=== PATIENT | female | born 1955 | race Asian ===

== ENCOUNTER 2025-05-26 08:10 | Day surgery (SDC) | payer MEDICARE, MEDICAID ==
[2025-05-20 15:38] LABS: MEAN PLATELET VOLUME 6.7 FL (7.4-10.4); PRE OP HEMATOCRIT 30.7 % (35.0-45.0); PRE OP PLATELET COUNT 282 X10'3 (140-440); PRE OP WHITE BLOOD COUNT 7.6 10'3 (4.8-10.8); RED CELL DISTRIBUTION WIDTH 15.8 % (11.5-14.5)
[2025-05-20 15:45] LABS: PRE OP HEMOGLOBIN 10.2 g/dL (12.0-16.0)
[2025-05-20 15:52] LABS: CREATININE 0.63 MG/DL (0.40-0.90); PRE OP ALT 32 U/L (30-65); PRE OP ANION GAP 5 (8-16); PRE OP AST 25 U/L (10-37); PRE OP BILIRUB, TOTAL 0.6 MG/DL (0.0-1.0); PRE OP GLUCOSE 131 MG/DL (70-104); PRE OP SODIUM 140 MMOL/L (135-145); TOTAL CARBON DIOXIDE 29.1 MMOL/L (24-32); eGFR > 90 ML/MIN
[2025-05-20 15:54] LABS: PRE OP POTASSIUM 2.8 MMOL/L (3.4-5.1)
[~2025-05-26] VITALS: Ht 154.9 cm; Wt 68.3 kg
[2025-05-26] VITALS (15 sets, daily range): BP systolic 114–145; BP diastolic 67–89; PULSE 69–90; RESP 12–19; TEMP 98.8; O2SAT 93–100
[2025-05-26] MEDS: ceFAZolin 2gm/dext,iso 50mL 50 ML IV ONE (05:30)
[~2025-05-26 08:10] MED LIST: DOCUMENT DATE & TIME OF BETA-BLOCKER PO ONE; LEVO100T9 PO; ONDA-243 SL; VITAMIN D PO
[2025-05-26] MEDS ORDERED: enalaprilat 1.25mg/ml 2ml vial IV PRN (09:00)
[2025-05-26] MEDS ORDERED: ringers solution, lacted 1,000 ML IV SCH (09:00)
[2025-05-26] MEDS ORDERED: ondansetron/PF 4mg/2ml inj IV PRN (09:00)
[2025-05-26] MEDS ORDERED: labetalol 20mg/4ml (5mg/ml) syringe IV PRN (09:00)
[2025-05-26] MEDS ORDERED: meperidine/PF 25mg/ml syringe IV PRN ×3 (09:00)
[2025-05-26] MEDS: ringers solution, lacted 1,000 ML IV SCH (09:06)
[2025-05-26 09:39] LABS: ISTAT ANION GAP 13 (8-12); ISTAT BUN 9 mg/dL (7-18); ISTAT CL 104 mmol/L (99-107); ISTAT CREATININE 0.6 mg/dL (0.6-1.1); ISTAT GLUCOSE 104 mg/dL (70-104); ISTAT HGB 11.2 g/dl (12.0-16.0); ISTAT Hct 33 %PCV (35-45); ISTAT IONIZED CALCIUM 1.18 mmol/L (1.03-1.32); ISTAT K 3.1 mmol/L (3.5-5.1); ISTAT NA 141 mmol/L (135-145); ISTAT TOTAL CO2 24 mmol/L (24-32); ISTAT eGFR > 90 ML/MIN; POC BUN/CREATININE RATIO 15.0 (6.6-38.0)
[2025-05-26] MEDS ORDERED: BUPIVAcaine 2.5mg/ml inj 50ml vial (contains preservative) ONE (10:29)
[2025-05-26] MEDS ORDERED: methylene blue (5mg/ml) 50mg/10ml ampul IV ONE (10:29)
[2025-05-26] MEDS ORDERED: LIDOcaine 1% (10mg/ml)w/preservative inj. 20ml MDV ONE (10:29)
[2025-05-26] MEDS ORDERED: fentaNYL/PF 50MCG/1 ML 2ML syringe ONE (12:14)
[2025-05-26] MEDS ORDERED: midazolam 1 mg/ML 2ml injection ONE (12:14)
[2025-05-26] MEDS ORDERED: propofol inj 20 ML IV ONE ×2 (12:18→12:27)
[2025-05-26] MEDS ORDERED: ondansetron/PF 4mg/2ml inj ONE (12:27)
[2025-05-26] MEDS ORDERED: acetaminophen 1,000mg/100ml IV 100 ML IV ONE (12:28)
[2025-05-26] MEDS: methylene blue (5mg/ml) 50mg/10ml ampul IV ONE (12:32)
[2025-05-26] MEDS: LIDOcaine 1% 30ml preserv. free vial IJ ONE (12:55)
--- NOTE | 2025-05-26 13:44 | RADIOLOGY REPORT ---
Specimen radiograph INDICATION: RT.BREAST LUMPECTOMY TECHNIQUE: Specimen radiographs were obtained of the right breast FINDINGS/IMPRESSION: Postop radiograph demonstrates the CHRISSIE BLOOD BANK SPECIALIST along with the specified target contained within the sp ecimen.
[2025-05-26] MEDS: BUPIVAcaine/PF 2.5 mg/ml (0.25%) 30ml vial IJ ONE (14:02)
[2025-05-26] MEDS: morphine 4 MG/ML inj SYRINge IV PRN (14:24)
--- NOTE | 2025-05-26 14:27 | OPERATIVE REPORT ---
Operative Report Providers to CC CC: ERMIAS PINZON DO ~ Date of Procedure: May 26, 2025 Pre-Operative Diagnosis: Right breast cancer completed neoadjuvant chemotherapy Post-Operative Diagnosis SAME as PRE-Op Procedure Performed Right breast wire (CHRISSIE reversing mill roller) localized lumpectomy, right axillary sentinel lymph node biopsy, oncoplastic closure, reading of specimen radiograph Surgeon: Dr. Ermias Pinzon Independent Driver engineer technician Anesthesiologist: Collins Keith Type of Anesthesia: General Findings: Three right axillary sentinel lymph nodes, marker and tracker detected on specimen radiograph Complications None Prosthetics\Implants used: None Estimated Blood Loss: Less than 10 mL Specimen Removed: Right breast wire localized lumpectomy oriented short stitch superior long suture lateral double suture deep, right axillary sentinel lymph nodes one hot and blue the other two hot only Description of Procedure: Phone is a 70-year-old female who was diagnosed with right breast invasive ductal carcinoma. She completed neoadjuvant chemotherapy and was sent to me for surgical management. Based on her visit we discussed the options of breast conservation versus mastectomy. It appeared that she got a good response from the neoadjuvant chemotherapy. She agreed to breast conservation. All the risks and benefits and alternatives to surgery were discussed with the patient and her family. The patient is not [place]ic speaking so she has had translators during her visits. She was seen in the preoperative holding area by myself and the anesthe siologist. The right breast was marked with my initials. An IV was placed on left upper extremity, SCDs to the lower extremities, and IV antibiotics were administered prior to the cut of surgery. She was taken into the operative suite and placed on table in supine position with the arms extended. General anesthesia was administered with an LMA. The patient had Lymphoseek injection yesterday and I used the probe to scan her right breast and axilla for the signals. Hospice was detected in the right axilla. I used the CHRISSIE probe to detect the CHRISSIE tracker in the upper inner quadrant and I marked the skin. The patient was prepped and draped in a sterile fashion and a time-out was performed and agreed upon. I started the surgery with the lumpectomy. I made a proposed Lenora areolar incision between 12 and 2:00 at the superior edge of the areola. 1% lidocaine was injected at the site. The incision was made with a 15 blade. I further deepened the dissection through the deep layer of the dermis with the cutting on the cautery. I used a Lee retractors at the edges of the incision to further my dissection beneath the skin flap. The CHRISSIE probe was used to find the signal and I guided my dissection around the site of the signal circumferentially and then deep to the signal. I maintained a distance of approximately 9-15 mm. Once the specimen was completely excised. I removed from the cavity and oriented with short stitch superior, long suture lateral, double suture deep. I scanned the cavity for any bleeding hemostasis was achieved with Bovie electrocautery. The specimen was placed in the specimen radiograph board and placed in the specimen radiograph machine. The two markers were detected on two views. Both were in good position. The specimen was placed in formalin. The cavity measured 8 cm x 10 cm x 4 cm. The acquired defect was noted. I released breast tissue and the superior aspect of the cavity and inferiorly with the cautery in preparation for reapproximation of the acquired defect. I turned my attention to the right axillary sentinel lymph node biopsy. I made an incision after injecting lidocaine in the right axilla. I further dissected through the deep dermal layer and into the subcutaneous tissue with the cautery. I dissected through the axillary fascia and we used the probe to detect a hot spot. I noticed a blue lymphatic vessel at the same site as the hot signal. I used a tonsil clamp to grasp the base of the lymph node and excised it with the LigaSure. Specimen was removed from the cavity. It was hot and blue as the sentinel lymph node #1 and sent off the field in formalin. Additionally I detected two additional lymph nodes that were hot only and they were excised in the same fashion. The cavity was irrigated and hemostasis was achieved with Bovie electrocautery. I used 10 mL of Vistaseal and sprayed in both cavities to assist with postoperative hemostasis. The right axillary cavity was approximated with 3-0 Vicryl suture. The skin was closed with 3-0 Vicryl suture and a 4-0 Monocryl running subcuticular stitch. I turned my attention to closure of the breast cavity. The cavity was approximated from the superior pole and the inferior pole with 3- 0 nasim Vicryl suture. The skin was closed in two layers with 3-0 Vicryl suture and a 4-0 Monocryl running subcuticular stitch. The areas were cleaned and Dermabond glue was placed over both incisions and clean dressings. The pressure dressing was placed in the axilla and a breast binder was placed on the patient. All needle sponge counts were correct. She tolerated procedure well was taken to recovery in stable condition. Counts repoted as correct: Yes ERMIAS PINZON DO May 26, 2025 14:27
[2025-05-26] MEDS: HYDROmorphone/PF 0.2 MG/ML SYRINGE IV PRN (14:55)
--- NOTE | 2025-06-01 07:06 | PATHOLOGY REPORT ---
[facility] [address] [place] [address] SURGICAL PATHOLOGY REPORT CaseNumber: [id number] Surgeon:Tarah Lee P.A.-C CLINICAL INFORMATION CLINICAL INFORMATION: The patient did have neoadjuvant chemotherapy. DIAGNOSIS DIAGNOSIS: A.BREAST, RIGHT, 1:30, 7 CM FROM NIPPLE; LUMPECTOMY - INVASIVE DUCTAL CARCINOMA, CAROLIN GRADE 2 (7/9), 1.6 X 0.8 CM IN SIZE. - POST NEOADJUVANT THERAPY. - CLOSEST MARGIN, ANTERIOR, CLEAR BY 0.4 CM. - INTERMEDIATE GRADE DUCTAL CARCINOMA IN SITU, CRIBRIFORM TYPE, 1.8 X 1.0 CM IN SIZE. - CLOSEST MARGIN, ANTERIOR, CLEAR BY 0.4 CM. DIAGNOSIS: B.LYMPH NODE, RIGHT AXILLARY, SENTINEL #1; EXCISION - BENIGN LYMPH NODE, ONE (0/1). DIAGNOSIS: C.LYMPH NODE, RIGHT AXILLARY #2; EXCISION - BENIGN LYMPH NODE, ONE (0/1). DIAGNOSIS: D.LYMPH NODE, RIGHT AXILLARY, SENTINEL #3; EXCISION - BENIGN LYMPH NODE, ONE (0/1). MICROSCOPIC DESCRIPTION A. BREAST, RIGHT, 1:30, 7 CM FROM NIPPLE MICROSCOPIC DESCRIPTION: Eight slides are reviewed of the right breast, 1:30, 7 cm from nipple lumpec daquan specimen. Present is residual invasive ductal carcinoma, post Neoadjuvant therapy, which measure s 1.6 x 0.8 cm in size and is clear of the closest margin, anterior by 0.4 cm. The residual scar region, adjacent to the biopsy site, is formed of dense fibrous tissue within whic h are scattered residual ductal epithelium exhibiting marked chemotherapy/radiation change. These epi thelial cells are quite large containing vacuolated cytoplasm and occasional intracytoplasmic lumen. The nuclei are oval to irregular. The nuclear margins are irregularly thickened. The chromatin is sli ghtly coarse. The vast majority of the malignant cells contain prominent very large basophilic nuclei . Occasional true ducts are formed (3). The nuclei vary markedly from one to another (3). The mitotic figures are less than 7/10 HPF's (1). The majority of the wound site is formed of acute and chronica lly inflamed, mostly mature granulation tissue. There is no brisk lymphohistiocytic tumor host respon se. There is no large vessel invasion. There is no small vessel invasion identified. In the immediate area of the invasive neoplasm, and in one additional region (A7), extending outward for an areas of 1.8 x 1.0 cm, is intermediate grade ductal carcinoma in situ, cribriform type. Present are polygonal malignant cells which are medium to slightly large in size. They have amphophi lic cytoplasm. The dysplastic cells stand apart from one another. In some ducts, they form "rigid" gl ands arranged in a cribriform pattern. Distant from the wound site, there are no features of ductal c arcinoma in situ. The in situ malignancy is clear of the closest margin, anterior, by 0.4 cm. Sections of the superior, inferior, medial, lateral, and posterior margin are free of neoplasm, both in situ and invasive. B. LYMPH NODE, RIGHT AXILLARY, SENTINEL #1 MICROSCOPIC DESCRIPTION: Prepared from the right axillary sentinel lymph node #1 were two H&E and one immunoperoxidase which are negative for the presence of malignancy (0/1). C. LYMPH NODE, RIGHT AXILLARY #2 MICROSCOPIC DESCRIPTION: Prepared from the right axillary sentinel lymph node #2 were two H&E and one immunoperoxidase which are negative for the presence of malignancy (0/1). D. LYMPH NODE, RIGHT AXILLARY, SENTINEL #3 MICROSCOPIC DESCRIPTION: Prepared from the right axillary sentinel lymph node #3 were five H&E and tw o immunoperoxidase which are negative for the presence of malignancy (0/1). (st) GROSS DESCRIPTION A. BREAST, RIGHT, 1:30, 7 CM FROM NIPPLE GROSS DESCRIPTION: Received in a container of formalin labeled with the patient's name, number, and " right breast lumpectomy" is a 62 g oriented excision of fibrofatty breast tissue which measures 4.5 x 8 x 3 cm. There are sutures from marking the superior, lateral, and posterior aspects of the excisio n. The superior margin is marked blue, the inferior margin is marked green, the medial margin is aida ed orange, the lateral margin is marked yellow, the anterior margin is marked red, and the posterior margin is marked black. Sectioning reveals a 1.5 x 1 x 1 cm ill-defined firm area which contains fore ign material (metallic clip). The firm area is present 0.6 cm from the anterior resection margin. Sections are submitted as follows:A1) Superior margin A2) Inferior marginA3) Medial marginA4) Lateral marginA5-A7) Anterior margin wi th firm area A8) Posterior margin The time at which the specimen was removed was 1300. The time at which the specimen was placed in fo rmalin was 1308. (meb) B. LYMPH NODE, RIGHT AXILLARY, SENTINEL #1 GROSS DESCRIPTION: Received in a container of formalin labeled with the patient's name, number, and " right axillary sentinel lymph node #1" is a 1 x 0.8 x 0.6 cm blue stained lymph node candidate. The s pecimen is sectioned and submitted as B1. The time at which the specimen was removed was 1322. The ti me at which the specimen was placed in formalin was 1325. (meb) C. LYMPH NODE, RIGHT AXILLARY #2 GROSS DESCRIPTION: Received in a container of formalin labeled with the patient's name, number, and " right axillary sentinel lymph node #2" is a 3 x 3 x 1 cm irregularly shaped excision of fat. Sectioni ng reveals a ward lymph node candidate. The specimen is sectioned and submitted as C1. The time at [facility] the specimen was removed was 1334. The time at which the specimen was placed in formalin was 1335. (meb) D. LYMPH NODE, RIGHT AXILLARY, SENTINEL #3 GROSS DESCRIPTION: Received in a container of formalin labeled with the patient's name, number, and " right axillary sentinel lymph node #3" is a 1.5 x 1 x 1 cm ward lymph node candidate. The specimen is sectioned and submitted as D1-D2. The time at which the specimen was removed was 1336. The time at [facility] the specimen was placed in formalin was 1337. (meb) SYNOPTIC REPORT SYNOPTIC TEXT: Previous prognostic markers ([id number], Right breast, 1:30, 6-7 cm from nipple) [place]: 0% [place]: 0% Her2: 3+ Ki-67: 20% FISH: Negative/not amplified Breast Invasive Carcinoma - Resection Specimen Procedure: Excision (less than total mastectomy) Specimen Laterality: Right Tumor Tumor Site: Clock position; Distance from nipple (Centimeters) 7 cm 1:30 o'clock Histologic Type: Invasive carcinoma of no special type (ductal) Histologic Grade (Carolin Histologic Score): Glandular (Acinar) / Tubular Differentiation: Score 2 Nuclear Pleomorphism: Score 3 Mitotic Rate: Score cannot be determined Tumor Focality: Single focus of invasive carcinoma Ductal Carcinoma In Situ (DCIS): Present Size (Extent) of DCIS: 18 x 10 Millimeters (mm) Architectural Patterns: Cribriform Nuclear Grade: Grade II (intermediate) Necrosis: Present, focal (small foci or single cell necrosis) Number of Blocks with DCIS: 3 Number of Blocks Examined: 8 Lobular Carcinoma In Situ (LCIS): Not identified Lymphatic and / or Vascular Invasion: Not identified Dermal Lymphatic and / or Vascular Invasion: No skin present Microcalcifications: Not identified Treatment Effect in the Breast: Probable or definite response to presurgical therapy in the invasive carcinoma Treatment Effect in the Lymph Nodes: No lymph node metastases and no fibrous scarring or histiocytic aggregates in the nodes Residual Cancer [place] (RCB) Parameters Greatest Dimension of Primary Tumor Bed Area (Millimeters): 16 mm Second Greatest Dimension of Primary Tumor Bed Area (Millimeters): 8 mm Percentage of Overall Cancer Cellularity: 10% Percentage of Cancer that is In Situ Disease: 10% Number of Positive Lymph Nodes: 0 Diameter of Largest Miguel Metastasis (Millimeters): 0 mm Residual Cancer [place]: 1.404 Residual Cancer [place] Class: RCB-II Margins Margin Status for Invasive Carcinoma: All margins negative for invasive carcinoma Distance from Invasive Carcinoma to Closest Margin: 4 mm Closest Margin(s) to Invasive Carcinoma: Anterior Margin Status for DCIS: All margins negative for DCIS Distance from DCIS to Closest Margin: Greater than 4 mm Distance from DCIS to Anterior Margin: Greater than 4 mm Regional Lymph Nodes Regional Lymph Node Status: All regional lymph nodes negative for tumor Total Number of Lymph Nodes Examined (sentinel and non-sentinel): 3 Number of [place] Nodes Examined: 3 Prior Biopsy ([facility] Standard 2.7) A biopsy was performed in-house: [id number] pTNM Classification (AJCC 8th Edition) Modified Classification: y pN Category: pN0 Best Tumor Blocks for Future Studies Tumor Block(s): A5-6 Normal Block(s): A1-A4 Electronically signed by: Willy Stock M.D. 05/31/2025 10:14:00 PM
== END 2025-05-26 16:19 | disposition home or self-care (01) ==
LOC: PAS 08:10
PROVIDERS: ATTEND Surgery
DX: C50.211 Malignant neoplasm of upper-inner quadrant of right female breast (principal); Z87.891 Personal history of nicotine dependence; Z79.890 Hormone replacement therapy; Z79.899 Other long term (current) drug therapy; Z98.51 Tubal ligation status
CPT/HCPCS: 19301; 36415; 38525; 76098; 80047; 80053; 82948; 85025; A4215; A4618; A6258; A6446; A7000; J0131; J1171; J2003; J2250; J2270; J2405; J2704; J3010; J3490; J7030; J7120; Q9968; Z7506; Z7508; Z7512; Z7610; 88307; 88342; C9250